=== PATIENT | male | born 1945 | race Caucasian/White ===

== ENCOUNTER 2019-03-29 08:10 | Day surgery (SDC) | payer MEDICARE ==
[~2019-03-29] VITALS: Ht 172.7 cm; Wt 106.6 kg
[~2019-03-29 08:10] MED LIST: ASPIRIN EC81 MG PO; FISH OIL 1,0001 EAC6 PO; LISINOPRIL-HCT1 EACH PO; MAGNESIUM400 MG PO; MULTIVITAMINS1 EAC7 PO; ULORIC40 MG PO
[2019-03-29] MEDS ORDERED: [UNRECOGNIZED DRUG - OTHER] (08:31)
[2019-03-29] MEDS ORDERED: VITAMIN D50000 UNI1 PO (08:32)
[2019-03-29] MEDS ORDERED: MELATONIN5 M5 PO (08:33)
[2019-03-29] MEDS ORDERED: COQ-10100 MG (08:34)
[2019-03-29] MEDS ORDERED: [UNRECOGNIZED DRUG - OTHER] (08:34)
--- NOTE | 2019-03-29 09:00 | NUR ---
HAS HAD R HIP REPLACEMENT. DR MERCHANT NOTIFIED AND NEW ORDER.
--- NOTE | 2019-03-29 09:50 | NUR ---
03/29/19 0919 Poonam Christensen 0945- PT ARRIVES TO PACU EASILY AROUSABLE TO VOICE. PT REPORTS NO PAIN OR NAUSEA. PT FALLS TO SLEEP WHEN NOT BEING TALKED TO BUT AROUSES ON HIS OWN. RESP EVEN AND UNLABORED. OXYGEN SAT HIGH 90'S TO 100% ON 2L VIA NC. 0965- PT PASSING LARGE AMOUNTS OF FLATUS.
--- NOTE | 2019-03-30 12:40 | OR ---
[facility] [address] [place], [place] [address] Signed DATE OF OPERATION: 03/29/2019 SURGEON: Fernando Merchant MD PREOPERATIVE DIAGNOSES: 1. History of radiation therapy and prostatectomy for prostate cancer, 2011. 2. Tenesmus and constipation. POSTOPERATIVE DIAGNOSES: 1. Sigmoid diverticulosis. 2. Mild edema of rectum. PROCEDURE: Total colonoscopy to cecum with biopsy of rectum. ANESTHESIA: Intravenous sedation, fentanyl 100 mcg, Versed 4.5 mg. INDICATION: A 73-year-old white man who is a patient of Dr. Ana Rosa Bah of [place], [place]. The patient underwent prostatectomy and subsequent radiation therapy in 2011 for prostate cancer treatment. Since that time and somewhat before, he has had sensation of tenesmus and constipation. Notably, he was said to have "irritable colon" in his younger years, well prior to prostate cancer. He is admitted at this time to undergo colonoscopy to better characterize the problem. Notably, he has had a colonoscopy in 2013 demonstrating diverticulosis. He uses dulcolax tablets sometimes for constipation. He has no family history of colon cancer. He is admitted at this time to undergo colonoscopy to better characterize his problem, understanding the risks of bleeding, infection, and perforation. FINDINGS: The prep was good. Complete colonoscopy was undertaken to the cecum without question. 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 There was no ulceration or telangiectasias. He did have a fair amount of diverticular change of the sigmoid and left colon, which may account for his constipation problems. DESCRIPTION OF PROCEDURE: The patient was taken to the endoscopy suite and placed in lateral decubitus position, given intravenous sedation to the point of slurred speech and nystagmus. Digital rectal Electronically Signed By: FERNANDO MERCHANT MD 03/30/19 1240 PATIENT NAME: ROMAN HAMMOND OPERATIVE REPORT DATE OF : 49 REPORT #: [id number] PHYSICIAN: FERNANDO MERCHANT MD PCP: ANAR OSA BAH MD REPORT IS CONFIDENTIAL AND NOT TO BE RELEASED WITHOUT AUTHORIZATION [facility] [address] [place], [place] [address] Signed examination was normal. An Olympus video colonoscope was passed in the rectum and manipulated throughout the colon ultimately intubating the cecum itself. The scope was carefully withdrawn and upon examination showed no sign of colitis or polyps, but did demonstrate diverticular changes of sigmoid and left colon. In the lowest part of the rectum was some edema as characterized by poorly visualized blood vessels, but no sign of ulceration or telangiectasias. Biopsies were obtained. Retroflexed view confirmed these findings as well. The scope was removed. The patient was taken to recovery room in good condition. 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 Additionally, he has diverticulosis, which may account for his constipation symptoms. I have recommended Citrucel one scoop daily plus added water or fluids to his diet. If his symptoms persist, he can call me for further evaluation and followup regarding his symptoms. I would recommend repeat colonoscopy in 10 years otherwise. Fernando Merchant MD JM/MODL /[id number] cc: Ana Rosa Bah DC Copies: ANA ROSA BAH DC ~ Electronically Signed By: FERNANDO MERCHANT MD 03/30/19 1240 PATIENT NAME: ROMAN HAMMOND OPERATIVE REPORT DATE OF : 49 REPORT #: [id number] PHYSICIAN: FERNANDO MERCHANT MD PCP: ANA ROSA BAH MD REPORT IS CONFIDENTIAL AND NOT TO BE RELEASED WITHOUT AUTHORIZATION
--- NOTE | 2019-04-01 12:51 | PATH ---
[facility] [address] [place], [place] [address] Signed SPECIMEN(S): A RECTUM SPECIMEN SOURCE: A. RECTUM CLINICAL HISTORY: Preop: Hx of radiation prostate. Postop: Divertic. MICROSCOPIC DESCRIPTION: Sections reveal a biopsy of colonic mucosa. The epithelial surface is intact and has retained mucus secreting ability. The basement membrane is not thickened. The glands are simple and tubular and reach all of the to the muscularis mucosae. The lamina propria is not expanded and contains a few plasma cells, lymphocytes and infrequent eosinophils. No acute inflammatory cells, excess intraepithelial lymphocytes, crypt abscesses, areas of fibrosis, granulomas or pseudomembranes are seen. There is no evidence of malignancy or atypia. LJA:cml FINAL PATHOLOGIC DIAGNOSIS: Mucosa, rectum, biopsy: - No microscopic pathologic diagnosis. LJA:cml:C2NR GROSS DESCRIPTION: The specimen, labeled "GS, rectum," is received in formalin and consists of three bolaños-white soft tissue fragments ranging from 0.1-0.2 cm in greatest dimension. The specimen is entirely submitted in cassette (A1). AR (under the direct supervision of a pathologist) The Gross Description was prepared using a voice recognition system. The report was reviewed for accuracy; however, sound-alike word errors, addition and/or deletions may occur. If there is any question about this report, please contact Client Services. PERFORMING LABORATORY: The technical component was performed by [facility], [address] [place] [id number] (Die Sinker Apprentice: Shira Benitez MD; CLIA# [id number]). [facility] [address] [address] (Die Sinker Apprentice: Dylan Zayas MD; CLIA# [id number]). PATIENT NAME: ROMAN HAMMOND PATHOLOGY DATE OF : 49 REPORT #: [id number] PHYSICIAN: [facility] PCP: ANA ROSA BAH MD REPORT IS CONFIDENTIAL AND NOT TO BE RELEASED WITHOUT AUTHORIZATION [address] [place] [address] Signed Diagnostician: Dylan Zayas MD Pathologist Electronically Signed 04/01/2019 Copies: ~ PATIENT NAME: ROMAN HAMMOND PATHOLOGY DATE OF : 49 REPORT #: [id number] PHYSICIAN: [facility] PCP: ANA ROSA BAH MD REPORT IS CONFIDENTIAL AND NOT TO BE RELEASED WITHOUT AUTHORIZATION
== END 2019-03-29 10:55 | disposition home or self-care (01) ==
LOC: DS 08:10 → OPS 08:10 → DS 09:30 → OPS 10:55
PROVIDERS: Surgery
PROC: 0DBP8ZX Excision of Rectum, Via Natural or Artificial Opening Endoscopic, Diagnostic (ICD-10-PCS; principal; 2019-03-29 09:30)
DX: K57.30 Diverticulosis of large intestine without perforation or abscess without bleeding (principal); K62.89 Other specified diseases of anus and rectum; K52.9 Noninfective gastroenteritis and colitis, unspecified; I10 Essential (primary) hypertension; K21.9 Gastro-esophageal reflux disease without esophagitis; E66.9 Obesity, unspecified; Z86.010 Personal history of colon polyps; Z92.3 Personal history of irradiation; Z90.79 Acquired absence of other genital organ(s); Z85.46 Personal history of malignant neoplasm of prostate; Z88.8 Allergy status to other drugs, medicaments and biological substances; Z88.6 Allergy status to analgesic agent; Z91.030 Bee allergy status; Z68.35 Body mass index [BMI] 35.0-35.9, adult
CPT/HCPCS: 99153; G0500; J0690; J2250; J2405; J3010; J7120